=== PATIENT | female | born 2005 | race Caucasian/White ===

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

== ENCOUNTER 2024-10-20 11:39 | Emergency (ER) | payer OTHER ==
[~2024-10-20] VITALS: Ht 165.1 cm; Wt 52.6 kg
[~2024-10-20 11:39] MED LIST: INTESTINEX680 M1 PO; PANADOL EXTRA500 MG; ZANTAC25 MG/1 ML
[2024-10-20 14:23] LABS: PH,URINE 6.5 (5.0-8.0); URINE APPEARANCE Cloudy; URINE BILIRRUBIN Negative (NEGATIVE); URINE BLOOD NHT; URINE COLOR Yellow; URINE GLUCOSE Negative (NEGATIVE); URINE KETONE Negative (NEGATIVE); URINE LEUKOCYTE Large; URINE NITRATE Negative; URINE PROTEIN Negative (NEGATIVE); URINE UROBILINOGEN 0.2 E.U./dl
[2024-10-20 14:27] LABS: HEMATOCRIT 38.3 % (36.0-45.00); HEMOGLOBIN 13.8 g/dL (12.0-15.00); MEAN CELL VOLUME 91.2 fL (80.00-100.00); MEAN CORPUSCULAR HEMOGLOBIN 32.8 pg (27.00-32.0); PLATELET COUNT 266 K/uL (150-450); RED BLOOD COUNT 4.21 M/uL (4.00-6.00); RED CELL DISTRIBUTION WIDTH 13.8 % (11.5-14.5)
[2024-10-20 14:27] LABS: URINE BACTERIA 1100.3 uL (0.0-1933); URINE EPITHELIAL CELLS 46.5 uL (0.0-38.8); URINE RBC 7.3 uL (0.0-20.8); URINE WBC 58.8 uL (0.0-23.2)
[2024-10-20] MEDS ORDERED: CEFTRIAXONE SODIUM 1,000 MG VIAL IM ONE (15:30)
[2024-10-20] MEDS ORDERED: CEFTRIAXONE SODIUM 1,000 MG VIAL ONE (15:45)
[2024-10-20] MEDS ORDERED: MEPERIDINE HCL/PF 50 MG/ML VIAL IM ONE (16:45)
[2024-10-20] MEDS ORDERED: PEPCID AC20 MG PO (16:50)
[2024-10-20] MEDS ORDERED: NORFLEX100MG PO (16:50)
[2024-10-20] MEDS ORDERED: BACTRIM DS TAB1 EACH PO (16:50)
[2024-10-20] MEDS ORDERED: FAMOtidine 10 MG/ML (4ML VIAL) IV PUSH ONE (17:00)
== END 2024-10-20 17:10 | disposition home or self-care (01) ==
LOC: ER 11:41
PROVIDERS: General Practice
DX: N93.9 Abnormal uterine and vaginal bleeding, unspecified (principal); N83.01 Follicular cyst of right ovary; N39.0 Urinary tract infection, site not specified

== ENCOUNTER 2024-11-01 03:21 | Emergency (ER) | payer OTHER ==
[~2024-11-01] VITALS: Ht 170.2 cm; Wt 54.4 kg
[~2024-11-01 03:21] MED LIST changes: +BACTRIM DS TAB1 EACH PO; +NORFLEX100MG PO; +PEPCID AC20 MG PO
[2024-11-01] MEDS ORDERED: PROMETHAZINE HCL 25 MG/ML AMPUL IM STA (04:11)
[2024-11-01] MEDS ORDERED: METOCLOPRAMIDE HCL 5 MG/ML VIAL IM STA (04:11)
[2024-11-01] MEDS ORDERED: METOCLOPRAMIDE HCL 5 MG/ML VIAL ONE (04:16)
[2024-11-01] MEDS ORDERED: PROMETHAZINE HCL 25 MG/ML AMPUL ONE (04:16)
== END 2024-11-01 05:23 | disposition home or self-care (01) ==
LOC: ER 03:21
DX: R10.13 Epigastric pain (principal); R11.10 Vomiting, unspecified